=== PATIENT | male | born 1960 | race Caucasian/White ===

== ENCOUNTER 2021-06-11 15:04 | Emergency (ER) | payer OTHER ==
[~2021-06-11] VITALS: Ht 175.3 cm; Wt 81.0 kg
[2021-06-11] MEDS ORDERED: VIMPAT200 MG PO (15:14)
[2021-06-11] MEDS ORDERED: FLOMAX0.4 MG PO (15:15)
== END 2021-06-11 18:36 | disposition home or self-care (01) ==
LOC: ED 15:04
DX: S01.512A Laceration without foreign body of oral cavity, initial encounter (principal); S16.1XXA Strain of muscle, fascia and tendon at neck level, initial encounter; G40.909 Epilepsy, unspecified, not intractable, without status epilepticus; Z79.899 Other long term (current) drug therapy
CPT/HCPCS: 70450; 72125; 80048; 85025; 99284-25; J2060